=== PATIENT | female | born 1990 | race Caucasian/White ===

== ENCOUNTER 2020-06-25 10:00 | Inpatient (IN) | payer OTHER ==
[~2020-06-25] VITALS: Ht 154.9 cm; Wt 64.4 kg
[2020-06-30] MEDS ORDERED: CEFAZOLIN SODIUM 1 GM VIAL IVP PRN (07:00)
[2020-06-30] MEDS ORDERED: LACTATED RINGERS 1000ML 1,000 ML IV SCH (07:00)
[2020-06-30] MEDS ORDERED: CALDOLOR 800MG+NS 250ML 250 ML IV PRN (07:00)
[2020-06-30 07:30] VITALS: BP 109/72
[2020-06-30 08:00] LABS: HEMATOCRIT 34.3 % (36-48); MEAN CORPUSCULAR HEMOGLOBIN 29.5 pg (27.0-33.0); MEAN CORPUSCULAR HGB CONC 33.2 g/dL (32.0-36.0); MEAN CORPUSCULAR VOLUME 88.6 fL (79-99); RED BLOOD CELL COUNT(AUTO) 3.87 MIL/uL (4.00-5.50); WHITE BLOOD COUNT (AUTO) 10.7 K/uL (4.8-10.8)
[2020-06-30] MEDS ORDERED: MEASLES/MUMPS/RUBELLA VACCINE, LIVE 0.5 ML/VIAL SQ SCH (08:30)
[2020-06-30] MEDS ORDERED: LANOLIN 30GM OINTMENT TP PRN (08:30)
[2020-06-30] MEDS ORDERED: BISACODYL 10 MG SUPP.RECT RC PRN (08:30)
[2020-06-30] MEDS ORDERED: ACETAMINOPHEN EXTRA STRENGTH 500 MG TABLET PO PRN (08:30)
[2020-06-30] MEDS ORDERED: SIMETHICONE 80 MG TAB.CHEW PO PRN (08:30)
[2020-06-30] MEDS ORDERED: IBUPROFEN 600 MG TABLET PO PRN (08:30)
[2020-06-30] MEDS ORDERED: MEPERIDINE-PF 75 MG/ML SYG IM PRN (08:30)
[2020-06-30] MEDS ORDERED: PROMETHAZINE HCL 25 MG/ML 1ML AMPULE IM PRN (08:30)
[2020-06-30] MEDS ORDERED: DIPHENHYDRAMINE HCL 25 MG CAPSULE PO PRN (08:30)
[2020-06-30] MEDS ORDERED: ACETAMINOPHEN-CODEINE 300/30MG TAB PO PRN (08:30)
[2020-06-30] MEDS: DIPH,PERTUSS(ACELL),TET VAC/PF 0.5 ML VIAL IM SCH (08:30)
[2020-06-30] MEDS ORDERED: OXYTOCIN-LR 20 UNITS/1000 ML 1,000 ML IV PRN (08:30)
[2020-06-30] MEDS ORDERED: HYDROCODONE/ACETAMINOPHEN 5/325 MG TAB PO PRN (08:30)
[2020-06-30] MEDS ORDERED: SODIUM CHLORIDE 0.9% 10 ML VIAL IVP PRN (08:30)
[2020-06-30] MEDS ORDERED: PREN1COM14 PO (08:33)
[2020-06-30] MEDS: LIDOCAINE 5% TOPICAL PATCH TP SCH (09:00)
[2020-06-30] MEDS ORDERED: DURAMORPH PF1 MG/ML 10ML AMP IV ONE (10:30)
[2020-06-30] MEDS ORDERED: CEFAZOLIN SODIUM 1 GM VIAL IVP ONE (10:34)
[2020-06-30 13:05] VITALS: BP 78/40
--- NOTE | 2020-06-30 13:05 | NUR ---
ROSHAN, DIRECT MARKETING COORDINATOR NURSE NOTIFIED OF PATIENT'S BP. STATES PATIENT'S BP NORMALLY RUNS LOW 80s/40s-50s.
[2020-06-30 16:10] VITALS: BP 83/52
[2020-06-30] MEDS: IBUPROFEN 800 MG TAB PO SCH ×2 (16:30→20:29)
[2020-06-30] MEDS ORDERED: CALDOLOR 800MG+NS 250ML 250 ML IV SCH (16:30)
[2020-06-30] MEDS: DEXTROSE 5 %-0.45 % NACL 1,000 ML IV PRN (17:38)
--- NOTE | 2020-06-30 20:30 | NUR ---
YISSEL CARE DONE, WELL TOLERATED. Addendum: 07/01/[address] JOHNSON RN RN Amended: Links added.
[2020-06-30] MEDS: CALDOLOR 800MG+NS 250ML 250 ML IV SCH (20:36)
[2020-06-30] MEDS: DOCUSATE SODIUM 100 MG CAP PO SCH (21:00)
[2020-06-30 22:05] VITALS: BP 84/55
[2020-06-30 23:47] VITALS: BP 95/56
[2020-07-01] MEDS: DIPH,PERTUSS(ACELL),TET VAC/PF 0.5 ML VIAL IM SCH (02:05)
[2020-07-01 03:07] VITALS: BP 96/59
[2020-07-01] MEDS: CALDOLOR 800MG+NS 250ML 250 ML IV SCH (04:06)
[2020-07-01] MEDS: DEXTROSE 5 %-0.45 % NACL 1,000 ML IV PRN (04:06)
--- NOTE | 2020-07-01 04:14 | NUR ---
PREI CARE DONE, WELL TOLERATED. Addendum: 07/01/[address] JOHNSON RN RN Amended: Links added.
--- NOTE | 2020-07-01 04:30 | NUR ---
PT. SAT UP IN BED, WELL TOLERATED.
--- NOTE | 2020-07-01 06:35 | NUR ---
JANAE LANZA. PT. INST TO CALL FOR ASSIST BEFORE GETTING OUT OF BED, VERBALIZED UNDERSTANDING. Addendum: 07/01/[address] JOHNSON RN RN Amended: Links added.
[2020-07-01 07:01] LABS: HEMATOCRIT 30.4 % (36-48); MEAN CORPUSCULAR HEMOGLOBIN 30.3 pg (27.0-33.0); MEAN CORPUSCULAR HGB CONC 33.9 g/dL (32.0-36.0); MEAN CORPUSCULAR VOLUME 89.4 fL (79-99); RED BLOOD CELL COUNT(AUTO) 3.4 MIL/uL (4.00-5.50); RED CELL DISTRIBUTION WIDTH 12.4 % (11.0-15.5); WHITE BLOOD COUNT (AUTO) 14.5 K/uL (4.8-10.8)
[2020-07-01 07:36] VITALS: BP 97/61
--- NOTE | 2020-07-01 08:30 | NUR ---
assisted to the bathroom by Dasia flynn. voided 500, pericare done, assisted back to bed. pt tolerated well. Addendum: 07/01/20 at 1123 by EDILIA SAM RN Amended: Links added.
[2020-07-01] MEDS: DOCUSATE SODIUM 100 MG CAP PO SCH (09:12)
[2020-07-01] MEDS: LIDOCAINE 5% TOPICAL PATCH TP SCH (09:14)
[2020-07-01] MEDS: IBUPROFEN 800 MG TAB PO SCH (10:16)
--- NOTE | 2020-07-01 10:35 | NUR ---
ambulating in the hallway in steady gait. Addendum: 07/01/20 at 1124 by EDILIA SAM RN Amended: Links added.
--- NOTE | 2020-07-01 11:00 | NUR ---
pt is discharged. verbal and written discharge instructions given, informed of the follow up appointment. prescription given. informed to call the doctor for future concerns. pt voiced understanding to all things discussed. Addendum: 07/01/20 at 1121 by EDILIA SAM RN Amended: Links added.
[2020-07-01 11:25] VITALS: BP 96/54
--- NOTE | 2020-07-01 12:05 | NUR ---
pt is dismissed with baby in stable condition, brought to private car via wheelchair by Dasia flynn Addendum: 07/01/20 at 1207 by EDILIA SAM RN Amended: Links added.
[2020-07-01 14:11] LABS: HEPATITIS Bs ANTIGEN SCREEN P Negative (Negative)
== END 2020-07-01 12:05 | disposition home or self-care (01) | DRG 788 ==
LOC: LDH 06-30 06:42 → WSH 06-30 13:00
PROVIDERS: ADMIT Obstetrics & Gynecology; ATTEND Obstetrics & Gynecology
PROC: 3E0134Z Introduction of Serum, Toxoid and Vaccine into Subcutaneous Tissue, Percutaneous Approach (ICD-10-PCS; 2020-06-30)
PROC: 10D00Z1 Extraction of Products of Conception, Low, Open Approach (ICD-10-PCS; principal; 2020-06-30 08:30)
DX: O34.211 Maternal care for low transverse scar from previous cesarean delivery (principal); Z3A.39 39 weeks gestation of pregnancy; Z20.828 Contact with and (suspected) exposure to other viral communicable diseases; Z37.0 Single live birth; Z23 Encounter for immunization
CPT/HCPCS: 36415; 59510; 85027; 86592; 86850; 86900; 86901; 87340; A4344; G0378; J0690; J1741; J2274; J7120; Q0163; U0003